=== PATIENT | female | born 1975 | race Caucasian/White ===

== ENCOUNTER 2016-07-11 10:47 | Emergency (ER) | payer SELFPAY ==
[2016-07-11 11:00] VITALS: TEMP 98.4; BMI 31.4
--- NOTE | 2016-07-11 11:35 | EDPRACDOC ---
- General Information Chief Complaint: Overdose Stated Complaint: OVERDOSE Time Seen by Provider: 07/11/16 11:14 Information Source: Patient Mode of Arrival: Car Home Medications: Home Medications Gabapentin 800 mg PO TID 07/11/16 Hydroxyzine Pamoate [Vistaril] 25 mg PO Q6 PRN #30 capsule 07/11/16 Lamotrigine [Lamictal] 150 mg PO HS 07/11/16 Propranolol HCl [Inderal] 20 mg PO BID 07/11/16 Quetiapine Fumarate [Seroquel] 25 mg PO QHS #10 tablet 07/11/16 Sertraline HCl [Zoloft] 100 mg PO DAILY 07/11/16 Zolpidem Tartrate [Ambien] 10 mg PO HS PRN 07/11/16 Zolpidem Tartrate [Ambien] 10 mg PO QHS #5 tablet 07/11/16 Allergies/Adverse Reactions: Allergies Allergy/AdvReac Type Severity Reaction Status Date / Time No Known Allergies Allergy Verified 07/11/16 11:00 - History of Present Illness Onset: 3 DAYS HPI: #30 AMBIEN 10 MG TABLETS CONSUMED IN 30 DAYS. ALSO SEVERAL NEURONTIN 300 MG TABLETS. FATHER REPORTS HALLUCINATING BEGINNING 2 DAYS AGO. PT AND FATHER ARE HERE REQUESTING A "BRIDGING PRESCRIPTION" TO HELP WITH THE "HIBI-JIBIS" SHE IS FEELING AFTER RUNNING OUT OF AMBIEN. AMBIEN RX FROM DOCTOR, NOT PSYCHIATRIST. PT SAY PSYCH 3 WEEKS AGO, ALL PSYC MEDS INCREASED. PT DETOXED OFF XANAX THIS SUMMER. IN DETOX 1 MONTH AGO. Reason for Seeking Treatment: Self-referral Relevant History: Reports: Bipolar, Suicidal Attempt, Inpatient Treatment, Outpatient Treatment Able to Care for Self: Yes Able to Control Self: Yes Other History: DENIES SI OR HI. ED Past Medical History - History Reviewed Yes Nurses notes reviewed and agree except as marked - Patient Medical History Psychological History: Denies: Substance Use Disorder - Social Medical History Smoking Status: Never smoker Social History: Denies: Substance Use Disorder EDM Review of Systems - Review of Systems ROS Negative Except as Marked: Yes All systems reviewed and were negative except as marked - Physical Exam Constitutional: No apparent distress, Alert. negative: Distress, Restless, Writhing Oriented to: Time, Person, Place Last recorded Vital Signs: Last Vital Signs Temp 98.4 F 07/11/16 10:57 Pulse 89 07/11/16 10:57 Resp 18 07/11/16 10:57 BP 120/56 L 07/11/16 10:57 Pulse Ox 96 07/11/16 10:57 Oxygen Pulse Oxygen Saturation 96 O2 Device Room Air Oxygen Flow Rate Fraction of Inspired Oxygen ( FIO2) - HEENT Head: Normal Eye Exam: negative: Pale Conjunctiva, Scleral Icterus Oropharynx: Normal. negative: Membranes Dry - Respiratory/Cardiovascular Respiratory: Normal - CTA Cardiovascular: Normal. negative: Tachycardia, Diastolic murmur, Systolic murmur - Neurologic Memory Impaired: Normal Motor Function: Normal Cranial Nerve: Normal Cerebellar: Normal Mood Description: Normal, Calm Thought: Coherent, Other (GOOD INSIGHT, QUESTIONABLE JUDGMENT) Perception: Normal - Additional Information Additional Information: NO SIGN OF PATHOLOGICAL WITHDRAWAL OR SEROTONIN SYNDROME. PT HAS MANIPULATIVE BEHAVIOR. MULTI DOCS MULTI PRESCRLPTIONS. WILL USE BENIGN MEDS AT THIS TIME. - Departure Disposition: Home Condition: Stable Final Diagnosis: AMBIEN ABUSE DISORDER MODERATE, Prescription drug abuse Instructions: Accidental Overdose, Adult Overdose Education/Counseling Given To: Patient, Family Member Education/Counseling Given Regarding: Diagnosis, Treatment Prescriptions: Quetiapine Fumarate [Seroquel] 25 mg PO QHS #10 tablet Zolpidem Tartrate [Ambien] 10 mg PO QHS #5 tablet Hydroxyzine Pamoate [Vistaril] 25 mg PO Q6 PRN #30 capsule PRN Reason: Anxiety Additional Instructions: SEEN YOUR PSYCHIATRIST TOMORROW
[2016-07-11] MEDS ORDERED: HydrOXYzine PAMOATE 25 MG/CAP CAP PO ONE (11:50)
[2016-07-11 12:06] VITALS: BP 126/74; PULSE 88
== END 2016-07-11 12:05 | disposition home or self-care (01) ==
LOC: ED 10:47
DX: F19.10 Other psychoactive substance abuse, uncomplicated (principal)
CPT/HCPCS: 36415; 99284; J3490